=== PATIENT | female | born 1980 | race Caucasian/White ===

== ENCOUNTER → 2019-10-08 | Outpatient (CLI) | payer BC ==
--- NOTE | 2019-10-08 16:34 | CT ---
EXAMINATION TYPE: CT abdomen pelvis wo con DATE OF EXAM: 10/08/2019 COMPARISON: None HISTORY: flank pain, hx of stones CT DLP: 524.9 mGycm Automated exposure control for dose reduction was used. TECHNIQUE: Helical acquisition of images was performed from the lung bases through the pelvis. FINDINGS: LUNG BASES: Right middle lobe 6 mm solid pulmonary nodule seen on image 1. LIVER/GB: No radiopaque calculi on CT within the gallbladder. Liver is of unremarkable unenhanced mor phology. PANCREAS: No significant abnormality is seen. SPLEEN: No splenomegaly. ADRENALS: No significant abnormality is seen. 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 However this is not as pronounced on the left. There is moderate left hydroureterone phrosis secondary to a distal obstructing calculus at the left ureterovesicular junction measuring 5 mm. Urinary bladder is largely decompressed. Additionally in the pelvis there is a large left adnexal lesion measuring 7.1 cm and measuring attenuation of simple fluid. Cystic changes also seen of the r ight ovary. Given the near midline location of the left ovarian lesion in the size, which predisposes this patient to ovarian torsion, pelvic ultrasound is recommended to evaluate for vascular flow and waveforms. The left ovarian cystic lesion has mass effect on the sigmoid colon however there is no di latation of the sigmoid colon to suggest obstruction. FREE AIR: No free air is visualized ADENOPATHY: No greater than 1 cm short axis lymph node in the abdomen or pelvis given the limitation of lack of intravenous contrast. OSSEOUS STRUCTURES: No significant abnormality is seen. BOWEL: The appendix is within normal limits of size and is retrocecal. No dilated large or small bow el. OTHER: Unenhanced abdominal aorta is of normal course and caliber. IMPRESSION: 1. OBSTRUCTING 5 MM CALCULUS AT THE LEFT URETEROVESICULAR JUNCTION CREATES MODERATE LEFT HYDROURETERO NEPHROSIS. 2. MASS EFFECT ON THE LEFT URETER AND SIGMOID COLON IS SEEN BY A LARGE 7.1 CM LEFT OVARIAN CYSTIC MAS S. PELVIC ULTRASOUND IS RECOMMENDED TO ENSURE VASCULAR FLOW TO THE LEFT OVARY THE SIZE OF THE CYST IC LESION DOES PREDISPOSE THIS PATIENT TO OVARIAN TORSION.
== END | disposition home or self-care (01) ==
LOC: RADCTMAIN 15:09
PROVIDERS: ATTEND Family Medicine
DX: N13.2 Hydronephrosis with renal and ureteral calculous obstruction (principal); N83.202 Unspecified ovarian cyst, left side
CPT/HCPCS: 74176

== ENCOUNTER 2023-09-11 12:06 | Emergency (ER) | payer BC ==
--- NOTE | 2023-09-11 12:32 | ED ---
General Adult HPI - General Chief complaint: Dizziness Stated complaint: high bp Time Seen by Provider: 09/11/23 12:16 Source: patient, RN notes reviewed Mode of arrival: ambulatory Limitations: no limitations - History of Present Illness Initial comments: Patient is a pleasant 43-year-old female presenting to the emergency department with concerns for hypertension. No history of chronic hypertension however 1 time when it was checked a year or so ago it was somewhat high. Patient is not on any medications for this. Patient took her blood pressure and it was found to be high and she was advised to come to the emergency department. Patient has no chest pain or shortness of breath. No weakness or confusion. No speech problems. Patient has minimal headache. - Related Data Home Medications Medication Instructions Recorded Confirmed Eletriptan [Relpax] 40 mg PO DAILY PRN 09/11/23 09/11/23 Escitalopram [Lexapro] 20 mg PO BID 09/11/23 09/11/23 Galcanezumab-Gnlm [Emgality Pen] 120 mg SQ Q30D 09/11/23 09/11/23 Previous Rx's Medication Instructions Recorded atenoloL [Tenormin] 25 mg PO DAILY #20 tab 09/11/23 Allergies Allergy/AdvReac Type Severity Reaction Status Date / Time Randall And Derivatives Allergy Rash/Hives/ Verified 09/11/23 14:08 [Randall] Nausea/Vomi ting Melon Allergy Rash/Hives/ Verified 09/11/23 14:08 Nausea/Vomi ting peanut Allergy Anaphylaxis Verified 09/11/23 14:08 /Nausea/Vom iting tree nut Allergy Anaphylaxis Verified 09/11/23 14:08 /Nausea/Vom iting Review of Systems ROS Statement: Those systems with pertinent positive or pertinent negative responses have been documented in the HPI. ROS Other: All systems not noted in ROS Statement are negative. Constitutional: Denies: fever Eyes: Denies: eye pain ENT: Denies: ear pain Respiratory: Denies: cough Cardiovascular: Denies: chest pain Endocrine: Denies: fatigue Gastrointestinal: Denies: abdominal pain Neurological: Reports: as per HPI, headache. Denies: weakness, numbness, paresthesias, confusion Past Medical History Past Medical History: No Reported History History of Any Multi-Drug Resistant Organisms: None Reported Past Surgical History: Hysterectomy Smoking Status: Never smoker General Exam Limitations: no limitations General appearance: alert, in no apparent distress Head exam: Present: normocephalic Eye exam: Present: normal appearance, PERRL, EOMI Neck exam: Present: normal inspection Respiratory exam: Present: normal lung sounds bilaterally Cardiovascular Exam: Present: regular rate, normal rhythm, normal heart sounds Expanded Peripheral pulses: 2+: Radial (R), Radial (L), Posterior Tibialis (R), Posterior Tibialis (L) GI/Abdominal exam: Present: soft. Absent: tenderness Extremities exam: Present: normal inspection Neurological exam: Present: alert, oriented X3, CN II-XII intact. Absent: motor sensory deficit Expanded Cranial nerves: EOM's Intact: Normal Motor strength exam: RUE: 5, LUE: 5, RLE: 5, LLE: 5 Eye Response: (4) open spontaneously Motor Response: (6) obeys commands Verbal Response: (5) oriented Psychiatric exam: Present: normal affect, normal mood Skin exam: Present: normal color Course Vital Signs 09/11/23 09/11/23 09/11/23 12:08 12:18 12:30 Temperature 98.3 F Pulse Rate 98 105 H Respiratory 16 18 Rate Blood Pressure 188/137 199/121 180/113 O2 Sat by Pulse 98 99 Oximetry 09/11/23 09/11/23 09/11/23 12:45 13:15 13:30 Temperature Pulse Rate 87 Respiratory 18 Rate Blood Pressure 180/113 181/113 172/105 O2 Sat by Pulse 95 97 95 Oximetry 09/11/23 13:45 Temperature Pulse Rate 81 Respiratory 18 Rate Blood Pressure 167/99 O2 Sat by Pulse 96 Oximetry EKG Findings - EKG Results: EKG: interpreted by ERMD, sinus rhythm, normal axis, normal QRS, normal ST/T Medical Decision Making - Medical Decision Making Was pt. sent in by a medical professional or institution (, PA, NEW CAR INSPECTOR, urgent care, hospital, or assisted...) When possible be specific @ -Patient was at medical facility when blood pressure was checked Did you speak to anyone other than the patient for history (EMS, parent, family, police, friend...)? What history was obtained from this source @ -There is a male present who r provides history of high blood pressure prior to arrival Did you review nursing and triage notes (agree or disagree)? Why? @ -I reviewed and agree with nursing and triage notes Were old charts reviewed (outside hosp., previous admission, EMS record, old EKG, old radiological studies, urgent care reports/EKG's, assisted records)? Report findings @ -No old charts were reviewed Differential Diagnosis (chest pain, altered mental status, abdominal pain women, abdominal pain men, vaginal bleeding, weakness, fever, dyspnea, syncope, h eadache, dizziness, GI bleed, back pain, seizure, CVA, palpatations, mental health, musculoskeletal)? @ -Differential Weakness: Hypoglycemia, shock, sepsis, hyponatremia, anemia, infection, [place], ETOH, adverse medicine reaction, overdose, stroke, this is not meant to be an all-inclusive list. EKG interpreted by me (3pts min.). @ -As above X-rays interpreted by me (1pt min.). @ -Chest x-ray shows no acute process CT interpreted by me (1pt min.). @ -None done U/S interpreted by me (1pt. min.). @ -None done What testing was considered but not performed or refused? (CT, X-rays, U/S, labs)? Why? @ -None What meds were considered but not given or refused? Why? @ -None Did you discuss the management of the patient with other professionals (professionals i.e. , PA, NEW CAR INSPECTOR, lab, RT, psych nurse, director of social services, prop attendant, teacher, special loan officer, mattress spring encaser)? Give summary @ -No Was smoking cessation discussed for >3mins.? @ -No Was critical care preformed (if so, how long)? @ -No Were there social determinants of health that impacted care today? How? (Homelessness, low income, unemployed, alcoholism, drug addiction, transportation, low edu. Level, literacy, decrease access to med. care, shelter, rehab)? @ -No Was there de-escalation of care discussed even if they declined (Discuss DNR or withdrawal of care, Hospice)? DNR status @ -No What co-morbidities impacted this encounter? (DM, HTN, Smoking, COPD, CAD, Cancer, CVA, ARF, Chemo, Hep., AIDS, mental health diagnosis, sleep apnea, morbid obesity)? @ -None Was patient admitted / discharged? Hospital course, mention meds given and route, prescriptions, significant lab abnormalities, going to OR and other pertinent info. @ -Patient reevaluated and resting comfortably in bed, remains symptom-free. Blood pressure is improved. Patient is updated on results and need for close follow-up. Patient states she will be able to get into see her primary care physician soon. Undiagnosed new problem with uncertain prognosis? @ -No Drug Therapy requiring intensive monitoring for toxicity (Heparin, Nitro, Insulin, Cardizem)? @ -No Were any procedures done? @ -No Diagnosis/symptom? @ -Hypertensive urgency Acute, or Chronic, or Acute on Chronic? @ -Acute Uncomplicated (without systemic symptoms) or Complicated (systemic symptoms)? @ -Default Side effects of treatment? @ -No Exacerbation, Progression, or Severe Exacerbation? @ -No Poses a threat to life or bodily function? How? (Chest pain, [place], [place], pneumonia, PE, COPD, DKA, ARF, appy, cholecystitis, CVA, Diverticulitis, Homicidal, Suicidal, threat to staff... and all critical care pts) @ -No - Lab Data Result diagrams: 09/11/23 14:30 Lab Results 09/11/23 Range/Units 14:30 WBC 9.9 (3.8-10.6) k/uL RBC 4.53 (3.80-5.40) m/uL Hgb 14.4 (11.4-16.0) gm/dL Hct 42.5 (34.0-46.0) % MCV 93.9 (80.0-100.0) fL MCH 31.9 (25.0-35.0) pg MCHC 33.9 (31.0-37.0) g/dL RDW 12.7 (11.5-15.5) % Plt Count 274 (150-450) k/uL MPV 8.2 Neutrophils % 77 % Lymphocytes % 16 % Monocytes % 3 % Eosinophils % 3 % Basophils % 1 % Neutrophils # 7.6 (1.3-7.7) k/uL Lymphocytes # 1.6 (1.0-4.8) k/uL Monocytes # 0.3 (0-1.0) k/uL Eosinophils # 0.3 (0-0.7) k/uL Basophils # 0.1 (0-0.2) k/uL Disposition Clinical Impression: Hypertensive urgency Disposition: HOME SELF-CARE Condition: Stable Instructions (If sedation given, give patient instructions): Hypertension (ED) Additional Instructions: Prescription sent to pharmacy. Please do follow-up with your primary care physician in the next 1 or 2 days for recheck. Keep a log of your blood pressures to provide to your primary care physician. Return for increased blood pressure, chest pain or weakness, worsening or changing symptoms or any other concerns. Prescriptions: atenoloL [Tenormin] 25 mg PO DAILY #20 tab Is patient prescribed a controlled substance at d/c from ED?: No Referrals: Winnie Ramirez, PAC [Family Provider] - 1-2 days Time of Disposition: 14:45
[2023-09-11] MEDS: LABETALOL 5 MG/ML VIAL MDV IVP STA ×2 (12:47→13:17)
[2023-09-11 12:53] VITALS: RESP 18; TEMP 98.3
--- NOTE | 2023-09-11 13:04 | XR ---
EXAMINATION TYPE: XR chest 2V DATE OF EXAM: 09/11/2023 COMPARISON: NONE HISTORY: Chest pain TECHNIQUE: Frontal and lateral views of the chest are obtained. FINDINGS: There is no focal air space opacity. No evidence for pneumothorax. No pleural effusion. The cardiac silhouette size is within normal limits. The osseous structures are grossly intact. IMPRESSION: 1. No acute cardiopulmonary process.
[2023-09-11 14:35] LABS: Basophils # (A) 0.1 k/uL (0-0.2); Basophils % (A) 1 %; Eosinophils # (A) 0.3 k/uL (0-0.7); Eosinophils % (A) 3 %; HCT 42.5 % (34.0-46.0); HGB 14.4 gm/dL (11.4-16.0); Lymphocytes # (A) 1.6 k/uL (1.0-4.8); Lymphocytes % (A) 16 %; MCH 31.9 pg (25.0-35.0); MCHC 33.9 g/dL (31.0-37.0); MCV 93.9 fL (80.0-100.0); Mean Platelet Volume 8.2; Monocytes # (A) 0.3 k/uL (0-1.0); Monocytes % (A) 3 %; Neutrophils # (A) 7.6 k/uL (1.3-7.7); Neutrophils % (A) 77 %; Platelet Count 274 k/uL (150-450); RBC 4.53 m/uL (3.80-5.40); RDW 12.7 % (11.5-15.5); WBC 9.9 k/uL (3.8-10.6)
[2023-09-11 14:53] LABS: ALT 61 U/L (4-34); AST 43 U/L (14-36); African American GFR (CKD) >90 (>60 ml/min/1.73 sqM); Albumin 4.6 g/dL (3.5-5.0); Alkaline Phosphatase 89 U/L (38-126); Anion Gap 12 mmol/L; Blood Urea Nitrogen 17 mg/dL (7-17); Calcium 9.9 mg/dL (8.4-10.2); Carbon Dioxide 18 mmol/L (22-30); Chloride 109 mmol/L (98-107); Glucose 99 mg/dL (74-99); Non-African American GFR(CKD) >90 (>60 ml/min/1.73 sqM); Sodium 139 mmol/L (137-145); Total Bilirubin 0.6 mg/dL (0.2-1.3); Total Protein 7.4 g/dL (6.3-8.2)
[2023-09-11 14:54] LABS: Potassium 4.2 mmol/L (3.5-5.1)
[2023-09-11 16:29] VITALS: BP 160/102; PULSE 84
== END 2023-09-11 16:16 | disposition home or self-care (01) ==
LOC: EC 12:06
DX: I16.0 Hypertensive urgency (principal); Z91.018 Allergy to other foods; Z91.010 Allergy to peanuts
CPT/HCPCS: 36415; 80053; 83735; 85025; 71046; 99284; 96374; 96376; J1920

== ENCOUNTER 2024-06-10 11:55 | Emergency (ER) | payer BC, OTHER ==
[2024-06-10 12:19] VITALS: BP 130/87; PULSE 95; RESP 20; TEMP 98.5
--- NOTE | 2024-06-10 12:24 | ED ---
Lower Extremity Injury HPI - General Chief Complaint: Extremity Injury, Lower Stated Complaint: Ultrasound, [facility] Time Seen by Provider: 06/10/24 12:19 Source: patient, RN notes reviewed Mode of arrival: ambulatory Limitations: no limitations - History of Present Illness Initial Comments: This is a 43-year-old female no significant medical history presenting to emergency department chief complaint of left knee pain and swelling after a work-related accident that occurred 5 days ago. 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 Over the past few days she has noticed increasing swelling of her calf that was measured to be 2.5 cm larger than the right calf. She denies chest pain, shortness of breath, difficulty breathing, recent surgeries, recent prolonged travel, history of DVT/PE, history of blood clotting disorders. Denies previous surgeries of the left knee. She is able to ambulate with pain. - Related Data Home Medications Medication Instructions Recorded Confirmed Eletriptan [Relpax] 40 mg PO DAILY PRN 09/11/23 09/11/23 Escitalopram [Lexapro] 20 mg PO BID 09/11/23 09/11/23 Galcanezumab-Gnlm [Emgality Pen] 120 mg SQ Q30D 09/11/23 09/11/23 Previous Rx's Medication Instructions Recorded atenoloL [Tenormin] 25 mg PO DAILY #20 tab 09/11/23 Allergies Allergy/AdvReac Type Severity Reaction Status Date / Time Lasalle And Derivatives Allergy Rash/Hives/ Verified 06/10/24 12:14 [Lasalle] Nausea/Vomi ting Melon Allergy Rash/Hives/ Verified 06/10/24 12:14 Nausea/Vomi ting peanut Allergy Anaphylaxis Verified 06/10/24 12:14 /Nausea/Vom iting tree nut Allergy Anaphylaxis Verified 06/10/24 12:14 /Nausea/Vom iting Review of Systems ROS Statement: Those systems with pertinent positive or pertinent negative responses have been documented in the HPI. ROS Other: All systems not noted in ROS Statement are negative. Past Medical History Past Medical History: Hypertension History of Any Multi-Drug Resistant Organisms: None Reported Past Surgical History: Hysterectomy Smoking Status: Never smoker Past Alcohol Use History: None Reported Past Drug Use History: None Reported General Exam Limitations: no limitations General appearance: alert, in no apparent distress ENT exam: Present: normal exam, mucous membranes moist Respiratory exam: Present: normal lung sounds bilaterally. Absent: respiratory distress, wheezes, rales, rhonchi, stridor Cardiovascular Exam: Present: regular rate, normal rhythm, normal heart sounds. Absent: systolic murmur, diastolic murmur, rubs, gallop, clicks GI/Abdominal exam: Present: soft, normal bowel sounds. Absent: distended, tenderness, guarding, rebound, rigid Left Knee exam: Present: tenderness, swelling. Absent: ecchymosis, deformity, crepitus, erythema, effusion Neurovascular tendon exam: Present: no vascular compromise. Absent: pulse deficit Gait: observed and normal Back exam: Present: normal inspection Neurological exam: Present: alert, oriented X3, CN II-XII intact Course Vital Signs 06/10/24 12:14 Temperature 98.5 F Pulse Rate 95 Respiratory 20 Rate Blood Pressure 130/87 O2 Sat by Pulse 96 Oximetry Medical Decision Making - Medical Decision Making Was pt. sent in by a medical professional or institution (, PA, PREPARER MAKING DEPARTMENT, urgent care, hospital, or care home...) When possible be specific @ -No Did you speak to anyone other than the patient for history (EMS, parent, family, police, friend...)? What history was obtained from this source @ -No Did you review nursing and triage notes (agree or disagree)? Why? @ -I reviewed and agree with nursing and triage notes Were old charts reviewed (outside hosp., previous admission, EMS record, old EKG, old radiological studies, urgent care reports/EKG's, care home records)? Report findings @ -No old charts were reviewed Differential Diagnosis (chest pain, altered mental status, abdominal pain women, abdominal pain men, vaginal bleeding, weakness, fever, dyspnea, syncope, headache, dizziness, GI bleed, back pain, seizure, CVA, palpatations, mental health, musculoskeletal)? @ -Differential Musculoskeletal Muscular strain, contusion, ligament sprain, fracture, arthritis, septic arthritis, bursitis, cellulitis, muscle spasm, nerve compression, DVT, arterial occlusion, herpes zoster, electrolyte abnormality, tumor.... This is not meant to be in all inclusive list EKG interpreted by me (3pts min.). @ -None X-rays interpreted by me (1pt min.). @ -X-ray of the left knee no acute process CT interpreted by me (1pt min.). @ -None done U/S interpreted by me (1pt. min.). @ -Ultrasound of the left lower extremity no evidence for DVT What testing was considered but not performed or refused? (CT, X-rays, U/S, labs)? Why? @ -None What meds were considered but not given or refused? Why? @ -None Did you discuss the management of the patient with other professionals (professionals i.e. , PA, PREPARER MAKING DEPARTMENT, lab, RT, psych nurse, home health care social worker, computer installation engineer, teacher, airplane first officer, casework supervisor)? Give summary @ -No Was smoking cessation discussed for >3mins.? @ -No Was critical care preformed (if so, how long)? @ -No Were there social determinants of health that impacted care today? How? (Homelessness, low income, unemployed, alcoholism, drug addiction, transportation, low edu. Level, literacy, decrease access to med. care, care home, rehab)? @ -No Was there de-escalation of care discussed even if they declined (Discuss DNR or withdrawal of care, Hospice)? DNR status @ -No What co-morbidities impacted this encounter? (DM, HTN, Smoking, COPD, CAD, Cancer, CVA, ARF, Chemo, Hep., AIDS, mental health diagnosis, sleep apnea, morbid obesity)? @ -None Was patient admitted / discharged? Hospital course, mention meds given and route, prescriptions, significant lab abnormalities, going to OR and other pertinent info. @ -Discharge. 43-year-old female presenting with left knee pain and swelling. She is noted to have swelling of the left knee and of the left mid calf with no palpable cord or erythema. X-ray of the knee and ultrasound of the left lower extremity negative for acute process. She is provided with Fede wrap and instructed to continue to rest, elevate and use Tylenol/Motrin as needed addition to provided Fede wrap. Discussed with Dr. Fischer Undiagnosed new problem with uncertain prognosis? @ -No Drug Therapy requiring intensive monitoring for toxicity (Heparin, Nitro, Insulin, Cardizem)? @ -No Were any procedures done? @ -No Diagnosis/symptom? @ -knee sprain Acute, or Chronic, or Acute on Chronic? @ -acute Uncomplicated (without systemic symptoms) or Complicated (systemic symptoms)? @ -uncomplicated Side effects of treatment? @ -No Exacerbation, Progression, or Severe Exacerbation? @ -No Poses a threat to life or bodily function? How? (Chest pain, [place], [place], pneumonia, PE, COPD, DKA, ARF, appy, cholecystitis, CVA, Diverticulitis, Homicidal, Suicidal, threat to staff... and all critical care pts) @ -No Disposition Clinical Impression: Knee sprain Disposition: HOME SELF-CARE Condition: Good Instructions (If sedation given, give patient instructions): Knee Sprain (ED) Additional Instructions: Please return to the Emergency Department if symptoms worsen or any other asher rns. Is patient prescribed a controlled substance at d/c from ED?: No Referrals: Otis Solorio DO [Primary Care Provider] - 1-2 days Time of Disposition: 13:52
--- NOTE | 2024-06-10 13:11 | US ---
EXAMINATION TYPE: US venous doppler duplex LE LT DATE OF EXAM: 06/10/2024 12:52 PM COMPARISON: NONE CLINICAL INDICATION: Female, 43 years old with history of swelling, calf pain; work injury last day, Pain TECHNIQUE: The lower extremity deep venous system is examined utilizing real time linear array sonog sue with graded compression, color doppler sonography, and spectral doppler. SIDE PERFORMED: Left FINDINGS: VESSELS IMAGED: Common Femoral Vein Deep Femoral Vein Greater Saphenous Vein * Femoral Vein Popliteal Vein Small Saphenous Vein * Proximal Calf Veins (* superficial vessels) Left Leg: Negative for DVT, Color Doppler imaging shows patency of the vessels. Spectral waveforms a re within normal limits. IMPRESSION: 1. Left lower extremity ultrasound negative for deep venous thrombosis [facility], , 06/10/2024 1:08 PM
--- NOTE | 2024-06-10 13:46 | XR ---
EXAMINATION TYPE: XR knee complete LT DATE OF EXAM: 06/10/2024 1:33 PM COMPARISON: None. CLINICAL INDICATION: Female, 43 years old with history of pain, injury, pain TECHNIQUE: 3 view(s) obtained. FINDINGS: Joint spaces are preserved. No joint effusion is evident. No acute fracture or dislocation is evident Follow up exams can be performed 7-10 days from acute trauma for continued pain. IMPRESSION: 1. No acute osseous abnormality left knee [facility], , 06/10/2024 1:44 PM
== END 2024-06-10 15:30 | disposition home or self-care (01) ==
LOC: EC 11:55
DX: Z02.83 Encounter for blood-alcohol and blood-drug test (principal)
CPT/HCPCS: 99499

== ENCOUNTER → 2024-06-18 | Outpatient (CLI) | payer OTHER ==
--- NOTE | 2024-06-18 12:05 | MR ---
EXAMINATION TYPE: MR knee LT wo con DATE OF EXAM: 06/18/2024 11:06 AM COMPARISON: Radiograph 06/10/2024 CLINICAL INDICATION: Female, 43 years old with history of S83.92XD SPRAIN OF UNSPECIFIED SITE OF LEFT KNEE, Left knee pain, injury 06-05-24. Pain TECHNIQUE: Multiplanar, multisequence imaging of the left knee is performed without IV contrast. FINDINGS: The ACL, PCL, MCL, and LCL complex are intact. There is an oblique tear involving the junction of the posterior horn and body of the medial meniscus . Lateral meniscus is intact. Moderate thickness focal cartilage fissuring medial patellar facet. Otherwise, tricompartment articular cartilage volume is maintained. Extensor mechanism is intact. Trace knee joint effusion likely physiologic. There is a leaking fluid in the expected location of a Tang's cyst. Multilocular ganglion cyst measuring 1.3 cm at the origin of the medial head gastrocnemius. Normal popliteal artery anatomy and muscle bulk. No suspicious bone marrow replacement. IMPRESSION: 1. Oblique tear involving the junction of the posterior horn and body of the medial meniscus. 2. Some focal degenerative change within the patellofemoral compartment with a moderate thickness car tilage fissure involving the medial patellar facet. 3. Incidentally, some leaking fluid in the expected location of a Tang's cyst. [facility], Workstation: TJ, 06/18/2024 12:03 PM
== END | disposition home or self-care (01) ==
LOC: RADMRIMAIN 09:52
PROVIDERS: ATTEND Emergency Medicine
DX: S83.92XD Sprain of unspecified site of left knee, subsequent encounter (principal); M79.662 Pain in left lower leg; M17.12 Unilateral primary osteoarthritis, left knee; S83.242A Other tear of medial meniscus, current injury, left knee, initial encounter